=== PATIENT | female | born 1960 | race Caucasian/White ===

== ENCOUNTER → 2024-03-12 | Emergency (ER) | payer MEDICAID, OTHER ==
[~2024-03-12] VITALS: Ht 162.6 cm; Wt 86.4 kg
[2024-03-12 00:42] VITALS: BP 131/84; PULSE 90; RESP 18; O2SAT 98
== END | disposition left against medical advice (07) ==
LOC: EDBD 00:33 → ER 00:33
DX: M54.2 Cervicalgia (principal); E11.9 Type 2 diabetes mellitus without complications; Z53.21 Procedure and treatment not carried out due to patient leaving prior to being seen by health care provider
CPT/HCPCS: 93005